=== PATIENT | female | born 1955 | race Caucasian/White ===

== ENCOUNTER 2020-02-06 08:51 | Outpatient (CLI) | payer OTHER, SELFPAY ==
--- NOTE | 2020-02-06 09:00 | MM_ITS ---
WS: [id number] Bilateral screening digital mammogram, 02/06/2020 Clinical Data: SCREENING Comparison: 01/18/2019, 08/15/2017, 01/09/2015, 01/07/2012, 04/24/2010, 10/14/2006. Findings: The breast parenchymal pattern shows fat replacement. No spiculated masses or clustered calcification s are seen. There are no secondary signs of carcinoma. MM/[id number] Impression: 1. Negative bilateral mammogram unchanged. 2. Recommend annual screening mammograms. BIRADS: 1-Negative FOLLOW UP: 1 Year Follow-up The CAD rechecker was used.
== END 2020-02-06 08:52 | disposition home or self-care (01) ==
LOC: RADSHAW 08:55
PROVIDERS: PCP Family Medicine; Visit Provider Family Medicine
DX: Z12.31 Encounter for screening mammogram for malignant neoplasm of breast (principal)
CPT/HCPCS: 77067

== ENCOUNTER 2021-06-15 13:52 | Outpatient (CLI) | payer OTHER, SELFPAY ==
--- NOTE | 2021-06-15 13:58 | MM_ITS ---
WS: [id number] Bilateral screening 3D tomosynthesis digital mammogram, 06/15/2021 Clinical Data: SCREENING Comparison: 02/06/2020, 01/08/2019, 08/15/2017, 01/09/2015, 01/07/2012, 04/24/2010, 10/14/2006. Findings: The breast parenchymal pattern shows fibroglandular tissue No spiculated masses or clustered calcific ations are seen. There are no secondary signs of carcinoma. MM/[id number] Impression: 1. Negative bilateral mammogram unchanged. 2. Recommend annual screening mammograms. BIRADS: 1-Negative FOLLOW UP: 1 Year Follow-up The CAD rechecker was used.
== END 2021-06-15 13:53 | disposition home or self-care (01) ==
LOC: RADSHAW 13:53
PROVIDERS: PCP Family Medicine; Visit Provider Family Medicine
DX: Z12.31 Encounter for screening mammogram for malignant neoplasm of breast (principal)
CPT/HCPCS: 77063; 77067

== ENCOUNTER 2022-12-31 10:25 | Outpatient (CLI) | payer MEDICARE, SELFPAY ==
--- NOTE | 2022-12-31 10:50 | MM_ITS ---
WS: [id number] Bilateral screening 3D tomosynthesis digital mammogram, 12/31/2022 Clinical Data: SCREENING Comparison: 06/15/2021, 02/06/2020, 01/08/2019, 08/15/2017, 04/11/2014, 01/07/2012, 04/24/2010, 10/14/2006. Findings: The breast parenchymal pattern shows fibroglandular tissue. No spiculated masses or clustered calcifi cations are seen. There are no secondary signs of carcinoma. Impression: 1. Negative bilateral mammogram unchanged. 2. Recommend annual screening mammograms. MM/[id number] BIRADS: 1-Negative FOLLOW UP: 1 Year Follow-up The CAD time checker was used.
== END 2022-12-31 10:26 | disposition home or self-care (01) ==
PROVIDERS: PCP Family Medicine; Visit Provider Family Medicine
DX: Z12.31 Encounter for screening mammogram for malignant neoplasm of breast (principal)
CPT/HCPCS: 77063; 77067

== ENCOUNTER → 2023-05-11 13:14 | Outpatient (BNVA) | payer MEDICARE, SELFPAY | PROVIDERS: PCP Family Medicine; Referring Provider Family Medicine; Visit Provider Surgery | DX: Z12.11 Encounter for screening for malignant neoplasm of colon (principal) | CPT/HCPCS: 99024; 99203 ==

== ENCOUNTER 2023-11-03 06:00 | Outpatient (CLI) | payer MEDICARE, SELFPAY ==
--- NOTE | 2023-11-03 10:59 | MM_ITS ---
WS: [id number] BILATERAL 3D TOMOSYNTHESIS DIGITAL DIAGNOSTIC MAMMOGRAPHY WITH CAD CLINICAL INFORMATION: lump in left breast HISTORY: LEFT breast lump COMPARISON: 2022 TECHNIQUE: Bilateral CC, MLO, and ML views. FINDINGS: The breasts are composed of heterogeneous fibroglandular density, which can limit the detection of sm all underlying mass lesions. Deep to the palpable marker LEFT breast there is a new partially obscure d nodular spiculated density measuring approximately 1.4 cm. Ultrasound of this area is pending. RIGHT breast is unchanged. Incidental punctate and lucent centered calcifications bilaterally. ULTRASOUND BREAST LEFT TECHNIQUE: Ultrasound left breast focused area of concern. CLINICAL INFORMATION: lump in left breast FINDINGS: Ultrasound LEFT breast area of concern. Irregular hypoechoic solid-appearing nodule at the 1 o'clock position 1 cm from the nipple. This measures approximately 1.8 x 1.6 x 2.0 cm suspicious for neoplasm . Recommend further evaluation with ultrasound-guided biopsy. Enlarged lymph nodes in the LEFT axilla although some with normal fatty arash. Largest lymph node eliane ures up to 2 cm. This could also be biopsied at the time of breast biopsy. MM/[place] [id number] IMPRESSION: BI-RADS: 5-Highly Suggestive of Malignancy FOLLOW UP: US Guided Biopsy Recommended Recommend ultrasound-guided biopsy of the LEFT breast mass and largest LEFT axi llary lymph node.
--- NOTE | 2023-11-03 11:15 | US_ITS ---
WS: [id number] BILATERAL 3D TOMOSYNTHESIS DIGITAL DIAGNOSTIC MAMMOGRAPHY WITH CAD CLINICAL INFORMATION: lump in left breast HISTORY: LEFT breast lump COMPARISON: 2022 TECHNIQUE: Bilateral CC, MLO, and ML views. FINDINGS: The breasts are composed of heterogeneous fibroglandular density, which can limit the detection of sm all underlying mass lesions. Deep to the palpable marker LEFT breast there is a new partially obscure d nodular spiculated density measuring approximately 1.4 cm. Ultrasound of this area is pending. RIGHT breast is unchanged. Incidental punctate and lucent centered calcifications bilaterally. ULTRASOUND BREAST LEFT TECHNIQUE: Ultrasound left breast focused area of concern. CLINICAL INFORMATION: lump in left breast FINDINGS: Ultrasound LEFT breast area of concern. Irregular hypoechoic solid-appearing nodule at the 1 o'clock position 1 cm from the nipple. This measures approximately 1.8 x 1.6 x 2.0 cm suspicious for neoplasm . Recommend further evaluation with ultrasound-guided biopsy. Enlarged lymph nodes in the LEFT axilla although some with normal fatty arash. Largest lymph node eliane ures up to 2 cm. This could also be biopsied at the time of breast biopsy. US/US breast LT limited* [id number] IMPRESSION: BI-RADS: 5-Highly Suggestive of Malignancy FOLLOW UP: US Guided Biopsy Recommended Recommend ultrasound-guided biopsy of the LEFT breast mass and largest LEFT axi llary lymph node.
== END 2023-11-03 06:01 | disposition home or self-care (01) ==
LOC: RAD 12-14 10:19
PROVIDERS: PCP Family Medicine; Visit Provider Nurse Practitioner Family
DX: N63.21 Unspecified lump in the left breast, upper outer quadrant (principal); R92.333 Mammographic heterogeneous density, bilateral breasts; R92.1 Mammographic calcification found on diagnostic imaging of breast; R59.0 Localized enlarged lymph nodes
CPT/HCPCS: 76642; 77062; G0279

== ENCOUNTER 2023-11-25 08:10 | Outpatient (CLI) | payer MEDICARE, SELFPAY ==
[2023-12-02 07:52] LABS: Breast Profile ER,PR,HER2,Ki-6 See Report
== END 2023-11-25 08:11 | disposition home or self-care (01) ==
LOC: RAD 08:11
PROVIDERS: PCP Family Medicine; Visit Provider Nurse Practitioner Family
DX: R92.8 Other abnormal and inconclusive findings on diagnostic imaging of breast (principal)
CPT/HCPCS: 19083; 38505; 76942; 88305; 88361; 88374